=== PATIENT | male | born 1990 ===

== ENCOUNTER 2023-11-15 20:55 | Inpatient (IN) | payer MEDICARE, MEDICAID, SELFPAY ==
[2023-11-15 21:45] VITALS: BMI 23.0
[2023-11-15 22:00] VITALS: BP 138/80; PULSE 83; RESP 18; TEMP 36.4; O2SAT 100
[2023-11-15 22:20] LABS: Valproate 40.6 mcg/mL (50.0-100.0)
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
--- NOTE | 2023-11-16 06:41 | HE.PHANOTE ---
RE: clozapine Nurse Mick Sweeney came to pharmacy with medication administration report for patient; last dose on clozapine was 150mg on 11/24/23 for PM dose. [facility] not allowing dispensing, will attempt to get MEDICAL LAB TECH INSTRUCTOR when patient gets blood draw. Order for ANC is in for 0500 today, waiting on phlebotomy
[2023-11-16 07:00] VITALS: BMI 23.0
[2023-11-16 07:44] VITALS: BP 149/63; PULSE 84; RESP 16; TEMP 36.4; O2SAT 99
[2023-11-16] MEDS: Atorvastatin Calcium 20 MG TABLET PO (09:01)
[2023-11-16] MEDS: Valsartan 40 MG TABLET PO (09:01)
[2023-11-16] MEDS: Valproic Acid 250 MG CAPSULE 500 MG PO ×2 (09:01→20:24)
[2023-11-16 09:32] VITALS: BMI 23.0
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
[2023-11-16 12:51] LABS: MANUAL DIFF FLAG NO
[2023-11-16 12:54] LABS: Basophils Percent Auto 0.5 % (0-2); Eosinophils Percent Auto 0.6 % (0-4); Hematocrit 43.6 % (42.0-52.0); Hemoglobin 14.9 g/dl (14.0-18.0); Imm Gran Abs Auto 0.02 X10*3/uL (0.00-0.03); Imm Gran Pct Auto 0.3 % (0.0-0.4); Lymphocytes Absolute Auto 1.4 X10*3/uL (1.2-4.9); Lymphocytes Percent Auto 21.7 % (20-40); Mean Corpuscular HGB Conc 34.2 g/dl (31.0-36.0); Mean Corpuscular Hemoglobin 29.6 pg (27.0-33.0); Mean Corpuscular Volume 86.7 fL (80.0-98.0); Mean Platelet Volume 9.4 fL (9.4-12.4); Monocytes Absolute Auto 0.4 X10*3/uL (0.1-1.2); Monocytes Percent Auto 6.3 % (2-11); Neut%MD 71.6 %; Neutrophils Absolute Auto 4.7 x10*3/uL (2.0-8.3); Neutrophils Absolute Auto 4.8 x10*3/uL (2.0-8.3); Neutrophils Percent Auto 70.6 % (45-73); Platelet Count 184 X10*3/uL (160-400); Red Blood Count 5.03 X10*6/uL (4.60-5.80); Red Cell Distribution Width 12.5 % (11.0-16.0); WBCANC 6.7 X10*3/uL; White Blood Count 6.7 X10*3/uL (4.8-10.8)
[2023-11-16 13:09] LABS: Alanine Aminotransferase 14 U/L (0-40); Albumin Level 4.1 g/dL (3.5-5.0); Alkaline Phosphatase 86 U/L (39-117); Anion Gap 12 (12-20); Aspartate Amino Transferase 17 U/L (5-37); Bilirubin Total 0.3 mg/dL (0.0-1.0); Blood Urea Nitrogen 17 mg/dL (9-16); Calcium 10.2 mg/dL (8.4-10.2); Carbon Dioxide 28 mmol/L (22-29); Chloride 101 mmol/L (96-108); Cholesterol 198 mg/dL (<200); Creatinine Clr Calc Pharmacy 101.3; Estimated Glomerular Filt Rate > 60; Glucose Fasting 341 mg/dL (60-99); HDL Cholesterol 52 mg/dL (>40); LDL Cholesterol Calculated 105 mg/dL (<100); Potassium 4.3 mmol/L (3.3-5.1); Sodium 137 mmol/L (135-145); Total Protein 7.1 g/dL (6.5-8.0); Triglycerides 208 mg/dL (<150)
[2023-11-16 14:44] LABS: Estimated Average Glucose 283 mg/dL; Hemoglobin A1c % 11.5 % (<6.0)
[2023-11-16 19:27] VITALS: BP 136/69; PULSE 88; RESP 18; TEMP 36.5; O2SAT 95
[2023-11-16] MEDS: cloZAPine 100 MG, cloZAPine 50 MG 150 MG PO (20:24)
[2023-11-17 08:00] VITALS: BP 179/81; PULSE 83; RESP 18; TEMP 36; O2SAT 100
[2023-11-17] MEDS: Atorvastatin Calcium 20 MG TABLET PO (09:03)
[2023-11-17] MEDS: Valsartan 40 MG TABLET PO (09:03)
[2023-11-17] MEDS: Valproic Acid 250 MG CAPSULE 500 MG PO ×2 (09:03→21:36)
--- NOTE | 2023-11-17 09:25 | HO.PSYCHPN ---
Subjective Subjective Date of Service: 11/17/23 Reason For Visit: Schizoaffective disorder Subjective Notes: Conditional Voluntary Interim History: Reviewed with . Pt presents guarded, poor insight. Pt stated, I'm not diabetic. I feel fine. I don't like getting my sugar taken because it hurts. I feel good and I'm ready to go back . Pt denies SI/HI/VH/AH. Medication Compliance: Intermittent Review of Systems Constitutional: Reports as per HPI Eyes: Reports as per HPI Reports as per HPI Cardiovascular: Reports as per HPI Respiratory: Reports as per HPI Gastrointestinal: Reports as per HPI Genitourinary: Reports as per HPI Musculoskeletal: Reports as per HPI Skin/Breast: Reports as per HPI Reports as per HPI Psychiatric: Reports as per HPI Endocrine: Reports as per HPI Hematologic/Lymphatic: Reports as per HPI Allergic/Immunologic: Reports as per HPI Mental Status Exam Mental Status Exam Narrative: Pt is alert and oriented; behavior is guarded and calm; dressed in casual attire ; mood is described as good ; eye contact appropriate; Speech is normal rate, volume and prosody and not pressured; focused on discharge; denies SI/HI/VH/AH. Patients insight and judgment are poor. Diagnostics Vital Signs (24Hr): Vital Signs - 24 hr 11/16/23 19:27 Temperature 97.7 F Pulse Rate 88 Respiratory Rate 18 Blood Pressure 136/69 Pulse Oximetry 95 Oxygen Delivery Method Room Air BMI result Body Mass Index 23.0 Labs 11/16/23 12:50 11/16/23 12:50 Labs: Laboratory Results - last 48 hr 11/15/23 11/16/23 11/16/23 21:49 12:50 12:50 WBC 6.7 RBC 5.03 Hgb 14.9 Hct 43.6 MCV 86.7 MCH 29.6 MCHC 34.2 RDW 12.5 Plt Count 184 MPV 9.4 Immature Gran % (Auto) 0.3 Neut % (Auto) 70.6 Lymph % (Auto) 21.7 [place] % (Auto) 6.3 Eos % (Auto) 0.6 Baso % (Auto) 0.5 Lymph # (Auto) 1.4 [place] # (Auto) 0.4 Eos # (Auto) 0.0 Baso # (Auto) 0.0 Abs Immat Gran (auto) 0.02 Absolute Neuts (auto) 4.7 4.8 Absolute Nucleated RBC 0.000 Nucleated RBC % (auto) 0.0 Sodium 137 Potassium 4.3 Chloride 101 Carbon Dioxide 28 Anion Gap 12 BUN 17 H Creatinine 0.91 Estim Creat Clear Calc 101.3 Estimated GFR > 60 Fasting Glucose 341 H Estimat Average Glucose 283 Hemoglobin A1c % 11.5 H Calcium 10.2 Total Bilirubin 0.3 AST 17 ALT 14 Alkaline Phosphatase 86 Total Protein 7.1 Albumin 4.1 Triglycerides 208 H Cholesterol 198 LDL Cholesterol, Calc 105 H HDL Cholesterol 52 Valproic Acid 40.6 L Medications Medications Current Medications Acetaminophen (Acetaminophen 325 Mg Tablet) 650 mg PO Q6H PRN PRN Reason: Headache/Pain Mild Scale (1-3) Al Hydroxide/Mg Hydroxide (Magnesium Hydrox/Alum Hydrox 30 Ml Oral.Susp) 30 ml PO Q6H PRN PRN Reason: Heartburn/Nausea Atorvastatin Calcium (Atorvastatin Calcium 20 Mg Tablet) 20 mg PO DAILY COUNTS INCLUDE 234 BEDS AT THE [facility] Last Admin: 11/17/23 09:03 Dose: 20 mg Clozapine 100 mg/ Clozapine 50 (mg) 150 mg PO BEDTIME COUNTS INCLUDE 234 BEDS AT THE [facility] Last Admin: 11/16/23 20:24 Dose: 150 mg Dextrose (Dextrose 50 % 25 Gm/50 Ml Syringe) 25 gm IVPUSH Q15M PRN; Protocol PRN Reason: per Hypoglycemia Standing Ord. Glucose (Glucose Gel 15 Gm Gel..Gram.) 15 gm PO Q15M PRN; Protocol PRN Reason: per Hypoglycemia Standing Ord. Haloperidol Decanoate (Haloperidol Decanoate 50 Mg/Ml Vial) 150 mg IM Q14D COUNTS INCLUDE 234 BEDS AT THE [facility] Haloperidol Lactate (Haloperidol Lactate Oral Conc 10 Mg/5 Ml Oral.Conc) 5 mg PO TID PRN PRN Reason: Psychosis Hydroxyzine HCl (Hydroxyzine Hcl 25 Mg Tablet) 25 mg PO Q6H PRN PRN Reason: Anxiety Insulin Human Lispro (Insulin Lispro 100 Unit/Ml 3 Ml Vial) 0 unit SUBCUT QIDACHS COUNTS INCLUDE 234 BEDS AT THE [facility]; Protocol Last Admin: 11/17/23 09:06 Dose: Not Given Magnesium Hydroxide (Milk Of Magnesia 30 Ml Oral.Susp) 30 ml PO DAILY PRN PRN Reason: Constipation Trazodone HCl (Trazodone Hcl 50 Mg Tablet) 50 mg PO BEDTIME MRX1 PRN PRN Reason: Insomnia Valproic Acid (Valproic Acid 250 Mg Capsule) 500 mg PO BID COUNTS INCLUDE 234 BEDS AT THE [facility] Last Admin: 11/17/23 09:03 Dose: 500 mg Valsartan (Valsartan 40 Mg Tablet) 40 mg PO DAILY [facility]; Protocol Last Admin: 11/17/23 09:03 Dose: 40 mg Allergies Allergies Allergy/AdvReac Type Severity Reaction Status Date / Time No Known Allergies Allergy Verified 11/15/23 21:25 Assessment & Plan Assessment & Plan (1) Schizoaffective disorder without good prognostic features: Status: Acute Code(s): F25.9 - Schizoaffective disorder, unspecified (2) Diabetes mellitus: Status: Acute Code(s): E11.9 - Type 2 diabetes mellitus without complications (3) Impulse control disorder: Status: Acute Code(s): F63.9 - Impulse disorder, unspecified Plan Patient admitted on a conditional voluntary. Patient quite concrete poorly informational history of aggression patient was in skilled nursing settings the past and forensic settings has been out since May has been on a combination clozapine Depakote Haldol Decanoate reportedly had missed dose of clozapine normally was 250 mg need further history monitor safety encourage treatment for diabetes increase clozapine as tolerated restart Haldol Decanoate ck dep mlvel cloz level 11/17: Pt presents guarded, poor insight. Pt stated, I'm not diabetic. I feel fine. I don't like getting my sugar taken because it hurts. I feel good and I'm ready to go back . Pt denies SI/HI/VH/AH. Continue current tx plan. Patient educated on: diagnosis, medication risk/benefits and medical condition Informed Consent: understands and further education needed Reason for continued inpatient stay Substantial Risk for: med/psych decompensation Time Spent With Patient Time: Total time managing care of this patient today _20___ minutes.
[2023-11-17 10:00] VITALS: BP 113/59; PULSE 83
--- NOTE | 2023-11-17 11:14 | PC.NURSE ---
BP before meds 179/81, P 83. Re-check after meds two hours later 113/59, P83. Erich FLOR aware.
--- NOTE | 2023-11-17 12:21 | PC.NURSE ---
Patient still refusing POC. Cesia shirley.
[2023-11-17 16:45] LABS: Glucose, Whole Blood 569 mg/dL (60-115)
[2023-11-17] MEDS: Insulin Lispro 100 UNIT/ML 3 ML VIAL SUBCUT (16:57)
--- NOTE | 2023-11-17 17:00 | PC.NURSE ---
POC 569 before supper, Dr Collier notified, Lispro Ins. 10 units per sliding scale as scheduled administered. No s/s of diabetic reaction noted. Will continue to monitor.
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
--- NOTE | 2023-11-17 19:33 | P.EN_ITS ---
Event Note Date of Service: 11/17/23 Event Note: Patient's POC before supper mario was 569 and he was given 10 units insulin. Patient previously had been refusing both p.o. diabetic medications and POC. He has a PMH of developmental delay and does not appear well informed of his PMH or his current medical condition. Patient adamantly denies that he has diabetes and believes he has already taken too much insulin and does not want any more. Reports being 17 or 18 when 1st told that he needed to take insulin, the patient denies ever being diagnosed with diabetes states he was just on the wrong medications then . Attempted to reason with patient, encouraging him to take insulin and p.o. meds in stating that from our perspective he needs his medications in order to prevent becoming seriously ill. Patient still unwilling at this time to take his medication. Will attempt to get BMP, beta hydroxybut yrate, VBG, and a UA. Time Spent With Patient Time: Total time managing care of this patient today ____ minutes.
[2023-11-17 20:20] VITALS: BP 150/76; PULSE 105; RESP 18; TEMP 36.7; O2SAT 99
[2023-11-17 20:24] LABS: VBG Base Excess 5.5 mmol/L; VBG HCO3 31 mmol/L (22-26); VBG pCO2 48 mmHg; VBG pH 7.41 (7.32-7.43); VBG pO2 39 mmHg
[2023-11-17 20:26] LABS: Venous Blood Gas Refer to POC result
[2023-11-17 20:50] LABS: Anion Gap 14 (12-20); Blood Urea Nitrogen 22 mg/dL (9-16); Calcium 11.3 mg/dL (8.4-10.2); Carbon Dioxide 30 mmol/L (22-29); Chloride 99 mmol/L (96-108); Creatinine Clr Calc Pharmacy 90.4; Estimated Glomerular Filt Rate > 60; Glucose Random 342 mg/dL (60-115); Potassium 4.1 mmol/L (3.3-5.1); Sodium 139 mmol/L (135-145)
[2023-11-17 20:53] LABS: Beta-Hydroxybutyrate 0.13 mmol/L (0.02-0.27)
[2023-11-17] MEDS: Insulin Glargine,Hum.rec.anlog 100 UNIT/ML 10 ML VIAL 12 UNIT SUBCUT (21:36)
[2023-11-17] MEDS: cloZAPine 100 MG, cloZAPine 50 MG 150 MG PO (21:36)
--- NOTE | 2023-11-18 03:13 | PC.NURSE ---
Provider Sharon bautista administering pt's ordered 12 units of lantus 11/17/2023 without POC as pt had bloodwork tonight with a glucose of 342 at 2016.
[2023-11-18 10:35] VITALS: BP 129/74; PULSE 100; RESP 18; TEMP 36.6; O2SAT 100
[2023-11-18] MEDS: Atorvastatin Calcium 20 MG TABLET PO (10:38)
[2023-11-18] MEDS: Valsartan 40 MG TABLET PO (10:39)
--- NOTE | 2023-11-18 11:59 | PC.NURSE ---
Pt refused Depakote and diabetic medications/POC, Daniel Collier MD made aware
[2023-11-18 19:50] VITALS: BP 132/70; PULSE 95; RESP 16; TEMP 36.1; O2SAT 99
--- NOTE | 2023-11-18 19:58 | P.PNPSI_ITS ---
Subjective Subjective Date of Service: 11/18/23 Reason For Visit: Schizoaffective disorder Interim History: calm, superficially cooperative. 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 no other complaints or requests. per staff, refusing FSBS, all DM meds. refused morning VPA today. took HS meds. 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 Mental Status Exam Mental Status Exam Narrative: Pt is alert and oriented; behavior is guarded and calm; dressed in casual attire ; mood is described as good ; eye contact appropriate; Speech is normal rate, volume and prosody and not pressured; focused on discharge; no SI/HI/VH/AH expressed. Patients insight and judgment are poor. Diagnostics Vital Signs (24Hr): Vital Signs - 24 hr 11/17/23 20:20 11/18/23 10:35 Temperature 98.0 F 97.8 F Pulse Rate 105 H 100 Respiratory Rate 18 18 Blood Pressure 150/76 H 129/74 Pulse Oximetry 99 100 Oxygen Delivery Method Room Air Room Air BMI result Body Mass Index 23.0 Labs 11/16/23 12:50 11/17/23 20:16 Labs: Laboratory Results - last 48 hr 11/17/23 11/17/23 11/17/23 16:40 20:16 20:19 VBG pH 7.41 VBG pCO2 48 VBG pO2 39 VBG HCO3 31 H VBG O2 Saturation 61.0 VBG Base Excess 5.5 Sodium 139 Potassium 4.1 Chloride 99 Carbon Dioxide 30 H Anion Gap 14 BUN 22 H Creatinine 1.02 Estim Creat Clear Calc 90.4 Estimated GFR > 60 POC Glucose 569 H* Random Glucose 342 H Calcium 11.3 H D Beta-Hydroxybutyrate 0.13 Medications Medications Current Medications Acetaminophen (Acetaminophen 325 Mg Tablet) 650 mg PO Q6H PRN PRN Reason: Headache/Pain Mild Scale (1-3) Al Hydroxide/Mg Hydroxide (Magnesium Hydrox/Alum Hydrox 30 Ml Oral.Susp) 30 ml PO Q6H PRN PRN Reason: Heartburn/Nausea Atorvastatin Calcium (Atorvastatin Calcium 20 Mg Tablet) 20 mg PO DAILY [facility] Last Admin: 11/18/23 10:38 Dose: 20 mg Clozapine 100 mg/ Clozapine 50 (mg) 150 mg PO BEDTIME [facility] Last Admin: 11/17/23 21:36 Dose: 150 mg Dextrose (Dextrose 50 % 25 Gm/50 Ml Syringe) 25 gm IVPUSH Q15M PRN; Protocol PRN Reason: per Hypoglycemia Standing Ord. Empagliflozin (Empagliflozin 25 Mg Tablet) 25 mg PO DAILY [facility] Last Admin: 11/18/23 10:40 Dose: Not Given Glucose (Glucose Gel 15 Gm Gel..Gram.) 15 gm PO Q15M PRN; Protocol PRN Reason: per Hypoglycemia Standing Ord. Haloperidol Lactate (Haloperidol Lactate Oral Conc 10 Mg/5 Ml Oral.Conc) 5 mg PO TID PRN PRN Reason: Psychosis Hydroxyzine HCl (Hydroxyzine Hcl 25 Mg Tablet) 25 mg PO Q6H PRN PRN Reason: Anxiety Insulin Glargine (Insulin Glargine,Hum.Rec.Anlog 100 Unit/Ml 10 Ml Vial) 12 unit SUBCUT BEDTIME [facility] Last Admin: 11/17/23 21:36 Dose: 12 unit Insulin Human Lispro (Insulin Lispro 100 Unit/Ml 3 Ml Vial) 0 unit SUBCUT QIDACHS [facility]; Protocol Last Admin: 11/18/23 15:38 Dose: Not Given Magnesium Hydroxide (Milk Of Magnesia 30 Ml Oral.Susp) 30 ml PO DAILY PRN PRN Reason: Constipation Metformin HCl (Metformin Hcl 1,000 Mg Tablet) 1,000 mg PO BIDWM [facility] Last Admin: 11/18/23 16:00 Dose: Not Given Sitagliptin Phosphate (Sitagliptin Phosphate 100 Mg Tablet) 100 mg PO DAILY [facility] Last Admin: 11/18/23 10:40 Dose: Not Given Trazodone HCl (Trazodone Hcl 50 Mg Tablet) 50 mg PO BEDTIME MRX1 PRN PRN Reason: Insomnia Valproic Acid (Valproic Acid 250 Mg Capsule) 500 mg PO BID [facility] Last Admin: 11/18/23 10:40 Dose: Not Given Valsartan (Valsartan 40 Mg Tablet) 40 mg PO DAILY [facility]; Protocol Last Admin: 11/18/23 10:39 Dose: 40 mg Allergies Allergies Allergy/AdvReac Type Severity Reaction Status Date / Time risperidone [From Risperdal] Allergy Unknown Unknown Verified 11/17/23 14:25 Assessment & Plan Assessment & Plan (1) Schizoaffective disorder without good prognostic features: Status: Acute Code(s): F25.9 - Schizoaffective disorder, unspecified (2) Diabetes mellitus: Status: Acute Code(s): E11.9 - Type 2 diabetes mellitus without complications (3) Impulse control disorder: Status: Acute Code(s): F63.9 - Impulse disorder, unspecified Plan Patient admitted on a conditional voluntary. Patient quite concrete poorly informational history of aggression patient was in group home settings the past and forensic settings has been out since May has been on a combination clozapine Depakote Haldol Decanoate reportedly had missed dose of clozapine normally was 250 mg need further history monitor safety encourage treatment for diabetes increase clozapine as tolerated restart Haldol Decanoate ck dep mlvel cloz level 11/17: Pt presents guarded, poor insight. Pt stated, I'm not diabetic. I feel fine. I don't like getting my sugar taken because it hurts. I feel good and I'm ready to go back . Pt denies SI/HI/VH/AH. Continue current tx plan. 11/18: increase HS clozapine by 25. stable. Reason for continued inpatient stay Substantial Risk for: harm to others, inability to function and rapid decompensation Time Spent With Patient Time: Total time managing care of this patient today ____ minutes.
[2023-11-18] MEDS: cloZAPine 100 MG, cloZAPine 75 MG 175 MG PO (22:08)
[2023-11-18] MEDS: Valproic Acid 250 MG CAPSULE 500 MG PO (22:08)
--- NOTE | 2023-11-19 01:41 | PC.NURSE ---
Pt refused POC and insulin lantus this evening stating I'm taking too much of that stuff into my body.
[2023-11-19 08:50] VITALS: BP 134/67; PULSE 89; RESP 18; TEMP 36.3; O2SAT 98
--- NOTE | 2023-11-19 19:14 | P.PNPSI_ITS ---
Subjective Subjective Date of Service: 11/19/23 Reason For Visit: Schizoaffective disorder Interim History: calm, cooperative. psychotic reasoning provided for refusal of a.m. meds and DM care. per staff, refused all meds this morning. med-compliant last NOC. refusing POC. refusing insulin. grandiose. Mental Status Exam Mental Status Exam Narrative: Pt is alert and oriented; behavior is guarded and calm; dressed in casual attire ; mood is described as good ; eye contact appropriate; Speech is normal rate, volume and prosody and not pressured; focused on discharge; no SI/HI/VH/AH expressed. Patients insight and judgment are poor. Diagnostics Vital Signs (24Hr): Vital Signs - 24 hr 11/18/23 19:50 11/19/23 08:50 Temperature 96.9 F 97.3 F Pulse Rate 95 89 Respiratory Rate 16 18 Blood Pressure 132/70 134/67 Pulse Oximetry 99 98 Oxygen Delivery Method Room Air Room Air BMI result Body Mass Index 23.0 Labs 11/16/23 12:50 11/17/23 20:16 Labs: Laboratory Results - last 48 hr 11/17/23 11/17/23 20:16 20:19 VBG pH 7.41 VBG pCO2 48 VBG pO2 39 VBG HCO3 31 H VBG O2 Saturation 61.0 VBG Base Excess 5.5 Sodium 139 Potassium 4.1 Chloride 99 Carbon Dioxide 30 H Anion Gap 14 BUN 22 H Creatinine 1.02 Estim Creat Clear Calc 90.4 Estimated GFR > 60 Random Glucose 342 H Calcium 11.3 H D Beta-Hydroxybutyrate 0.13 Medications Medications Current Medications Acetaminophen (Acetaminophen 325 Mg Tablet) 650 mg PO Q6H PRN PRN Reason: Headache/Pain Mild Scale (1-3) Al Hydroxide/Mg Hydroxide (Magnesium Hydrox/Alum Hydrox 30 Ml Oral.Susp) 30 ml PO Q6H PRN PRN Reason: Heartburn/Nausea Atorvastatin Calcium (Atorvastatin Calcium 20 Mg Tablet) 20 mg PO DAILY [facility] Last Admin: 11/19/23 09:18 Dose: Not Given Clozapine (Clozapine 100 Mg Tablet) 200 mg PO BEDTIME [facility] Dextrose (Dextrose 50 % 25 Gm/50 Ml Syringe) 25 gm IVPUSH Q15M PRN; Protocol PRN Reason: per Hypoglycemia Standing Ord. Empagliflozin (Empagliflozin 25 Mg Tablet) 25 mg PO DAILY [facility] Last Admin: 11/19/23 09:18 Dose: Not Given Glucose (Glucose Gel 15 Gm Gel..Gram.) 15 gm PO Q15M PRN; Protocol PRN Reason: per Hypoglycemia Standing Ord. Haloperidol Lactate (Haloperidol Lactate Oral Conc 10 Mg/5 Ml Oral.Conc) 5 mg PO TID PRN PRN Reason: Psychosis Hydroxyzine HCl (Hydroxyzine Hcl 25 Mg Tablet) 25 mg PO Q6H PRN PRN Reason: Anxiety Insulin Glargine (Insulin Glargine,Hum.Rec.Anlog 100 Unit/Ml 10 Ml Vial) 12 unit SUBCUT BEDTIME [facility] Last Admin: 11/18/23 22:13 Dose: Not Given Insulin Human Lispro (Insulin Lispro 100 Unit/Ml 3 Ml Vial) 0 unit SUBCUT QIDACHS [facility]; Protocol Last Admin: 11/19/23 16:32 Dose: Not Given Magnesium Hydroxide (Milk Of Magnesia 30 Ml Oral.Susp) 30 ml PO DAILY PRN PRN Reason: Constipation Metformin HCl (Metformin Hcl 1,000 Mg Tablet) 1,000 mg PO BIDWM [facility] Last Admin: 11/19/23 16:32 Dose: Not Given Sitagliptin Phosphate (Sitagliptin Phosphate 100 Mg Tablet) 100 mg PO DAILY [facility] Last Admin: 11/19/23 09:18 Dose: Not Given Trazodone HCl (Trazodone Hcl 50 Mg Tablet) 50 mg PO BEDTIME MRX1 PRN PRN Reason: Insomnia Valproic Acid (Valproic Acid 250 Mg Capsule) 1,000 mg PO BEDTIME [facility] Valsartan (Valsartan 40 Mg Tablet) 40 mg PO DAILY [facility]; Protocol Last Admin: 11/19/23 09:18 Dose: Not Given Allergies Allergies Allergy/AdvReac Type Severity Reaction Status Date / Time risperidone [From Risperdal] Allergy Unknown Unknown Verified 11/17/23 14:25 Assessment & Plan Assessment & Plan (1) Schizoaffective disorder without good prognostic features: Status: Acute Code(s): F25.9 - Schizoaffective disorder, unspecified (2) Diabetes mellitus: Status: Acute Code(s): E11.9 - Type 2 diabetes mellitus without complications (3) Impulse control disorder: Status: Acute Code(s): F63.9 - Impulse disorder, unspecified Plan Patient admitted on a conditional voluntary. Patient quite concrete poorly informational history of aggression patient was in penitentiary settings the past and forensic settings has been out since May has been on a combination clozapine Depakote Haldol Decanoate reportedly had missed dose of clozapine normally was 250 mg need further history monitor safety encourage treatment for diabetes increase clozapine as tolerated restart Haldol Decanoate ck dep mlvel cloz level 11/17: Pt presents guarded, poor insight. Pt stated, I'm not diabetic. I feel fine. I don't like getting my sugar taken because it hurts. I feel good and I'm ready to go back . Pt denies SI/HI/VH/AH. Continue current tx plan. 11/18: increase HS clozapine by 25, to 175 mg QHS. stable. 11/19: increase HS clozapine by 25, to 200 mg QHS. consolidate all VPA at HS, since he has been refusing the morning dose. stable presentation. psychotic. Reason for continued inpatient stay Substantial Risk for: harm to others, inability to function and rapid decompensation Time Spent With Patient Time: Total time managing care of this patient today ____ minutes.
[2023-11-19 19:35] VITALS: BP 147/76; PULSE 98; RESP 18; TEMP 36.2; O2SAT 98
[2023-11-19] MEDS: cloZAPine 100 MG TABLET 200 MG PO (21:08)
--- NOTE | 2023-11-20 02:28 | PC.NURSE ---
Pt refused VPA, POC and Insulin, taking only clozaril.
[2023-11-20 09:32] VITALS: BP 112/69; PULSE 112; RESP 16; TEMP 36.4; O2SAT 100
--- NOTE | 2023-11-20 14:26 | HO.PSYCHPN ---
Subjective Subjective Date of Service: 11/20/23 Reason For Visit: Schizoaffective disorder Interim History: calm, cooperative. walking the halls rapping. 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 cautions against over-indulgence in drugs, asserting just some alcohol ad cannabis is good. states he doesn't want to take VPA, was encouraged to do so in any case. review plan to get him back to 250 mg QHS of clozaril prior to discharge. per staff, flat, withdrawn, guarded. refusing POC. eating well. refused VPA last night. Mental Status Exam Mental Status Exam Narrative: Pt is alert and oriented; behavior is guarded and calm; dressed in casual attire ; mood is described as good ; eye contact appropriate; Speech is normal rate, volume and prosody and not pressured; focused on discharge; no SI/HI/VH/AH expressed. Patients insight and judgment are poor. Diagnostics Vital Signs (24Hr): Vital Signs - 24 hr 11/19/23 19:35 11/20/23 09:32 Temperature 97.2 F 97.5 F Pulse Rate 98 112 H Respiratory Rate 18 16 Blood Pressure 147/76 H 112/69 Pulse Oximetry 98 100 Oxygen Delivery Method Room Air Room Air BMI result Body Mass Index 23.0 Labs 11/16/23 12:50 11/17/23 20:16 Medications Medications Current Medications Acetaminophen (Acetaminophen 325 Mg Tablet) 650 mg PO Q6H PRN PRN Reason: Headache/Pain Mild Scale (1-3) Al Hydroxide/Mg Hydroxide (Magnesium Hydrox/Alum Hydrox 30 Ml Oral.Susp) 30 ml PO Q6H PRN PRN Reason: Heartburn/Nausea Atorvastatin Calcium (Atorvastatin Calcium 20 Mg Tablet) 20 mg PO DAILY [facility] Last Admin: 11/20/23 09:57 Dose: Not Given Clozapine (Clozapine 25 Mg Tablet) 225 mg PO BEDTIME [facility] Dextrose (Dextrose 50 % 25 Gm/50 Ml Syringe) 25 gm IVPUSH Q15M PRN; Protocol PRN Reason: per Hypoglycemia Standing Ord. Empagliflozin (Empagliflozin 25 Mg Tablet) 25 mg PO DAILY [facility] Last Admin: 11/20/23 09:57 Dose: Not Given Glucose (Glucose Gel 15 Gm Gel..Gram.) 15 gm PO Q15M PRN; Protocol PRN Reason: per Hypoglycemia Standing Ord. Haloperidol Lactate (Haloperidol Lactate Oral Conc 10 Mg/5 Ml Oral.Conc) 5 mg PO TID PRN PRN Reason: Psychosis Hydroxyzine HCl (Hydroxyzine Hcl 25 Mg Tablet) 25 mg PO Q6H PRN PRN Reason: Anxiety Insulin Glargine (Insulin Glargine,Hum.Rec.Anlog 100 Unit/Ml 10 Ml Vial) 12 unit SUBCUT BEDTIME [facility] Last Admin: 11/19/23 21:08 Dose: Not Given Insulin Human Lispro (Insulin Lispro 100 Unit/Ml 3 Ml Vial) 0 unit SUBCUT QIDACHS [facility]; Protocol Last Admin: 11/20/23 11:35 Dose: Not Given Magnesium Hydroxide (Milk Of Magnesia 30 Ml Oral.Susp) 30 ml PO DAILY PRN PRN Reason: Constipation Metformin HCl (Metformin Hcl 1,000 Mg Tablet) 1,000 mg PO BIDWM [facility] Last Admin: 11/20/23 09:57 Dose: Not Given Sitagliptin Phosphate (Sitagliptin Phosphate 100 Mg Tablet) 100 mg PO DAILY [facility] Last Admin: 11/20/23 09:57 Dose: Not Given Trazodone HCl (Trazodone Hcl 50 Mg Tablet) 50 mg PO BEDTIME MRX1 PRN PRN Reason: Insomnia Valproic Acid (Valproic Acid 250 Mg Capsule) 1,000 mg PO BEDTIME [facility] Last Admin: 11/19/23 21:08 Dose: Not Given Valsartan (Valsartan 40 Mg Tablet) 40 mg PO DAILY [facility]; Protocol Last Admin: 11/20/23 09:57 Dose: Not Given Allergies Allergies Allergy/AdvReac Type Severity Reaction Status Date / Time risperidone [From Risperdal] Allergy Unknown Unknown Verified 11/17/23 14:25 Assessment & Plan Assessment & Plan (1) Schizoaffective disorder without good prognostic features: Status: Acute Code(s): F25.9 - Schizoaffective disorder, unspecified (2) Diabetes mellitus: Status: Acute Code(s): E11.9 - Type 2 diabetes mellitus without complications (3) Impulse control disorder: Status: Acute Code(s): F63.9 - Impulse disorder, unspecified Plan Patient admitted on a conditional voluntary. Patient quite concrete poorly informational history of aggression patient was in [place] [facility] settings the past and forensic settings has been out since May has been on a combination clozapine Depakote Haldol Decanoate reportedly had missed dose of clozapine normally was 250 mg need further history monitor safety encourage treatment for diabetes increase clozapine as tolerated restart Haldol Decanoate ck dep mlvel cloz level 11/17: Pt presents guarded, poor insight. Pt stated, I'm not diabetic. I feel fine. I don't like getting my sugar taken because it hurts. I feel good and I'm ready to go back . Pt denies SI/HI/VH/AH. Continue current tx plan. 11/18: increase HS clozapine by 25, to 175 mg QHS. stable. 11/19: increase HS clozapine by 25, to 200 mg QHS. consolidate all VPA at HS, since he has been refusing the morning dose. stable presentation. psychotic. 11/20: increase clozapine to 225 mg tonight. walking the [place] rapping, grandiose delusions. refusing VPA. Reason for continued inpatient stay Substantial Risk for: inability to function and rapid decompensation Time Spent With Patient Time: Total time managing care of this patient today ____ minutes.
[2023-11-20] MEDS: Acetaminophen 325 MG TABLET 650 MG PO ×2 (14:44→23:40)
--- NOTE | 2023-11-20 17:24 | PC.NURSE ---
PT refused all POC's and medications. Daniel Collier MD made aware.
[2023-11-20] MEDS: Nicotine Polacrilex 2 MG GUM BUCCAL (17:42)
[2023-11-20 19:45] VITALS: BP 149/89; PULSE 118; RESP 16; TEMP 36.1; O2SAT 100
[2023-11-20] MEDS: cloZAPine 200 MG, cloZAPine 25 MG 225 MG PO (21:44)
--- NOTE | 2023-11-21 00:03 | PC.NURSE ---
Pt has been exhibiting far more responding to internal stimuli than seen over the last few days. Overtly responding, angry and loudly so.
[2023-11-21 07:25] VITALS: BP 138/89; PULSE 120; RESP 16; TEMP 36.1; O2SAT 98
--- NOTE | 2023-11-21 09:32 | HO.PSYCHPN ---
Subjective Subjective Date of Service: 11/21/23 Reason For Visit: Schizoaffective disorder Subjective Notes: Conditional Voluntary Interim History: Reviewed with . Pt presents calm during 1:1; pt stated, I feel like my mood is good overall . Pt continues to refuse POC and insulin. He reports he will start taking the valporic acid tonight. denies SI/HI/VH/AH. Medication Compliance: Intermittent Side effects from medications: No Review of Systems Constitutional: Reports as per HPI Eyes: Reports as per HPI Reports as per HPI Cardiovascular: Reports as per HPI Respiratory: Reports as per HPI Gastrointestinal: Reports as per HPI Genitourinary: Reports as per HPI Musculoskeletal: Reports as per HPI Skin/Breast: Reports as per HPI Reports as per HPI Psychiatric: Reports as per HPI Endocrine: Reports as per HPI Hematologic/Lymphatic: Reports as per HPI Allergic/Immunologic: Reports as per HPI Mental Status Exam Mental Status Exam Narrative: Pt is alert and oriented; behavior is guarded and calm; dressed in casual attire ; mood is described as good ; eye contact appropriate; Speech is normal rate, volume and prosody and not pressured; focused on discharge; no SI/HI/VH/AH expressed. Patients insight and judgment are poor. Diagnostics Vital Signs (24Hr): Vital Signs - 24 hr 11/20/23 19:45 11/21/23 07:25 Temperature 96.9 F 97.0 F Pulse Rate 118 H 120 H Respiratory Rate 16 16 Blood Pressure 149/89 H 138/89 Pulse Oximetry 100 98 Oxygen Delivery Method Room Air Room Air BMI result Body Mass Index 23.0 Labs 11/16/23 12:50 11/17/23 20:16 Medications Medications Current Medications Acetaminophen (Acetaminophen 325 Mg Tablet) 650 mg PO Q6H PRN PRN Reason: Headache/Pain Mild Scale (1-3) Last Admin: 11/20/23 23:40 Dose: 650 mg Al Hydroxide/Mg Hydroxide (Magnesium Hydrox/Alum Hydrox 30 Ml Oral.Susp) 30 ml PO Q6H PRN PRN Reason: Heartburn/Nausea Atorvastatin Calcium (Atorvastatin Calcium 20 Mg Tablet) 20 mg PO DAILY [facility] Last Admin: 11/21/23 07:49 Dose: Not Given Clozapine 200 mg/ Clozapine 25 (mg) 225 mg PO BEDTIME [facility] Last Admin: 11/20/23 21:44 Dose: 225 mg Dextrose (Dextrose 50 % 25 Gm/50 Ml Syringe) 25 gm IVPUSH Q15M PRN; Protocol PRN Reason: per Hypoglycemia Standing Ord. Empagliflozin (Empagliflozin 25 Mg Tablet) 25 mg PO DAILY [facility] Last Admin: 11/21/23 07:49 Dose: Not Given Glucose (Glucose Gel 15 Gm Gel..Gram.) 15 gm PO Q15M PRN; Protocol PRN Reason: per Hypoglycemia Standing Ord. Haloperidol Lactate (Haloperidol Lactate Oral Conc 10 Mg/5 Ml Oral.Conc) 5 mg PO TID PRN PRN Reason: Psychosis Hydroxyzine HCl (Hydroxyzine Hcl 25 Mg Tablet) 25 mg PO Q6H PRN PRN Reason: Anxiety Insulin Glargine (Insulin Glargine,Hum.Rec.Anlog 100 Unit/Ml 10 Ml Vial) 12 unit SUBCUT BEDTIME [facility] Last Admin: 11/20/23 21:47 Dose: Not Given Insulin Human Lispro (Insulin Lispro 100 Unit/Ml 3 Ml Vial) 0 unit SUBCUT QIDACHS [facility]; Protocol Last Admin: 11/21/23 07:49 Dose: Not Given Magnesium Hydroxide (Milk Of Magnesia 30 Ml Oral.Susp) 30 ml PO DAILY PRN PRN Reason: Constipation Metformin HCl (Metformin Hcl 1,000 Mg Tablet) 1,000 mg PO BIDWM [facility] Last Admin: 11/21/23 07:49 Dose: Not Given Nicotine Polacrilex (Nicotine Polacrilex 2 Mg Gum) 2 mg BUCCAL Q2H PRN PRN Reason: Nicotine Cravings Last Admin: 11/20/23 17:42 Dose: 2 mg Sitagliptin Phosphate (Sitagliptin Phosphate 100 Mg Tablet) 100 mg PO DAILY [facility] Last Admin: 11/21/23 07:49 Dose: Not Given Trazodone HCl (Trazodone Hcl 50 Mg Tablet) 50 mg PO BEDTIME MRX1 PRN PRN Reason: Insomnia Valproic Acid (Valproic Acid 250 Mg Capsule) 1,000 mg PO BEDTIME [facility] Last Admin: 11/20/23 21:47 Dose: Not Given Valsartan (Valsartan 40 Mg Tablet) 40 mg PO DAILY [facility]; Protocol Last Admin: 11/21/23 07:49 Dose: Not Given Allergies Allergies Allergy/AdvReac Type Severity Reaction Status Date / Time risperidone [From Risperdal] Allergy Unknown Unknown Verified 11/17/23 14:25 Assessment & Plan Assessment & Plan (1) Schizoaffective disorder without good prognostic features: Status: Acute Code(s): F25.9 - Schizoaffective disorder, unspecified (2) Diabetes mellitus: Status: Acute Code(s): E11.9 - Type 2 diabetes mellitus without complications (3) Impulse control disorder: Status: Acute Code(s): F63.9 - Impulse disorder, unspecified Plan Patient admitted on a conditional voluntary. Patient quite concrete poorly informational history of aggression patient was in intermediate settings the past and forensic settings has been out since May has been on a combination clozapine Depakote Haldol Decanoate reportedly had missed dose of clozapine normally was 250 mg need further history monitor safety encourage treatment for diabetes increase clozapine as tolerated restart Haldol Decanoate ck dep mlvel cloz level 11/17: Pt presents guarded, poor insight. Pt stated, I'm not diabetic. I feel fine. I don't like getting my sugar taken because it hurts. I feel good and I'm ready to go back . Pt denies SI/HI/VH/AH. Continue current tx plan. 11/18: increase HS clozapine by 25, to 175 mg QHS. stable. 11/19: increase HS clozapine by 25, to 200 mg QHS. consolidate all VPA at HS, since he has been refusing the morning dose. stable presentation. psychotic. 11/20: increase clozapine to 225 mg tonight. walking the [place] rapping, grandiose delusions. refusing VPA. 11/21: Pt presents calm during 1:1; pt stated, I feel like my mood is good overall . Pt continues to refuse POC and insulin. He reports he will start taking the valporic acid tonight. Observed walking the unit elizalde and rapping. denies SI/HI/VH/AH. Increase Clozapine to 250mg PO bedtime. Labs ordered for tomorrow morning. ANC and CBC. Patient educated on: diagnosis, medication risk/benefits and therapeutic strategies Informed Consent: understands and further education needed Reason for continued inpatient stay Substantial Risk for: med/psych decompensation Time Spent With Patient Time: Total time managing care of this patient today _20___ minutes.
[2023-11-21 20:30] VITALS: BP 145/82; PULSE 110; RESP 16; TEMP 36.7; O2SAT 98
[2023-11-21] MEDS: cloZAPine 25 MG TABLET 50 MG PO (20:47)
[2023-11-21] MEDS: cloZAPine 100 MG TABLET 200 MG PO (20:47)
[2023-11-21] MEDS: Valproic Acid 250 MG CAPSULE 1000 MG PO (20:48)
[2023-11-21 21:30] LABS: COVID-19 Test Negative (Negative); IDNOW Serial# 08D9AD1C
[2023-11-22 08:11] VITALS: BP 121/65; PULSE 80; RESP 14; TEMP 36.6; O2SAT 96
[2023-11-22 08:27] LABS: Glucose, Whole Blood > 600 mg/dL (60-115)
--- NOTE | 2023-11-22 09:44 | P.PNPSI_ITS ---
Subjective Subjective Date of Service: 11/22/23 Reason For Visit: Schizoaffective disorder Subjective Notes: Conditional Voluntary Interim History: Reviewed with . Pt guarded during 1:1; reports feeling good today. Pt stated, I'm just waiting to leave . Pt denies SI/HI/VH/AH. Refused insulin, despite education and encouragement. Medication Compliance: Intermittent Attending Groups: No Review of Systems Constitutional: Reports as per HPI Eyes: Reports as per HPI Reports as per HPI Cardiovascular: Reports as per HPI Respiratory: Reports as per HPI Gastrointestinal: Reports as per HPI Genitourinary: Reports as per HPI Musculoskeletal: Reports as per HPI Skin/Breast: Reports as per HPI Reports as per HPI Psychiatric: Reports as per HPI Endocrine: Reports as per HPI Hematologic/Lymphatic: Reports as per HPI Allergic/Immunologic: Reports as per HPI Mental Status Exam Mental Status Exam Narrative: Pt is alert and oriented; behavior is guarded and calm; dressed in casual attire ; mood is described as good ; eye contact appropriate; Speech is normal rate, volume and prosody and not pressured; focused on discharge; no SI/HI/VH/AH expressed. Patients insight and judgment are poor. Diagnostics Vital Signs (24Hr): Vital Signs - 24 hr 11/21/23 20:30 11/22/23 08:11 Temperature 98.0 F 97.9 F Pulse Rate 110 H 80 Respiratory Rate 16 14 Blood Pressure 145/82 H 121/65 Pulse Oximetry 98 96 Oxygen Delivery Method Room Air Room Air BMI result Body Mass Index 23.0 Labs 11/16/23 12:50 11/17/23 20:16 Labs: Laboratory Results - last 48 hr 11/21/23 11/22/23 21:06 08:21 POC Glucose > 600 H* COVID-19 (ALEJANDRO) Negative COVID-19 Clin Com See Note Medications Medications Current Medications Acetaminophen (Acetaminophen 325 Mg Tablet) 650 mg PO Q6H PRN PRN Reason: Headache/Pain Mild Scale (1-3) Last Admin: 11/20/23 23:40 Dose: 650 mg Al Hydroxide/Mg Hydroxide (Magnesium Hydrox/Alum Hydrox 30 Ml Oral.Susp) 30 ml PO Q6H PRN PRN Reason: Heartburn/Nausea Atorvastatin Calcium (Atorvastatin Calcium 20 Mg Tablet) 20 mg PO DAILY [facility] Last Admin: 11/22/23 09:39 Dose: Not Given Clozapine (Clozapine 100 Mg Tablet) 200 mg PO BEDTIME DARREN Last Admin: 11/21/23 20:47 Dose: 200 mg Clozapine (Clozapine 25 Mg Tablet) 50 mg PO BEDTIME [facility] Last Admin: 11/21/23 20:47 Dose: 50 mg Dextrose (Dextrose 50 % 25 Gm/50 Ml Syringe) 25 gm IVPUSH Q15M PRN; Protocol PRN Reason: per Hypoglycemia Standing Ord. Empagliflozin (Empagliflozin 25 Mg Tablet) 25 mg PO DAILY [facility] Last Admin: 11/22/23 09:39 Dose: Not Given Glucose (Glucose Gel 15 Gm Gel..Gram.) 15 gm PO Q15M PRN; Protocol PRN Reason: per Hypoglycemia Standing Ord. Haloperidol Lactate (Haloperidol Lactate Oral Conc 10 Mg/5 Ml Oral.Conc) 5 mg PO TID PRN PRN Reason: Psychosis Hydroxyzine HCl (Hydroxyzine Hcl 25 Mg Tablet) 25 mg PO Q6H PRN PRN Reason: Anxiety Insulin Glargine (Insulin Glargine,Hum.Rec.Anlog 100 Unit/Ml 10 Ml Vial) 12 unit SUBCUT BEDTIME [facility] Last Admin: 11/21/23 22:21 Dose: Not Given Insulin Human Lispro (Insulin Lispro 100 Unit/Ml 3 Ml Vial) 0 unit SUBCUT QIDACHS [facility]; Protocol Last Admin: 11/22/23 09:39 Dose: Not Given Magnesium Hydroxide (Milk Of Magnesia 30 Ml Oral.Susp) 30 ml PO DAILY PRN PRN Reason: Constipation Metformin HCl (Metformin Hcl 1,000 Mg Tablet) 1,000 mg PO BIDWM [facility] Last Admin: 11/22/23 09:39 Dose: Not Given Nicotine Polacrilex (Nicotine Polacrilex 2 Mg Gum) 2 mg BUCCAL Q2H PRN PRN Reason: Nicotine Cravings Last Admin: 11/20/23 17:42 Dose: 2 mg Sitagliptin Phosphate (Sitagliptin Phosphate 100 Mg Tablet) 100 mg PO DAILY [facility] Last Admin: 11/22/23 09:39 Dose: Not Given Trazodone HCl (Trazodone Hcl 50 Mg Tablet) 50 mg PO BEDTIME MRX1 PRN PRN Reason: Insomnia Valproic Acid (Valproic Acid 250 Mg Capsule) 1,000 mg PO BEDTIME [facility] Last Admin: 11/21/23 20:48 Dose: 1,000 mg Valsartan (Valsartan 40 Mg Tablet) 40 mg PO DAILY [facility]; Protocol Last Admin: 11/22/23 09:40 Dose: Not Given Allergies Allergies Allergy/AdvReac Type Severity Reaction Status Date / Time risperidone [From Risperdal] Allergy Unknown Unknown Verified 11/17/23 14:25 Assessment & Plan Assessment & Plan (1) Schizoaffective disorder without good prognostic features: Status: Acute Code(s): F25.9 - Schizoaffective disorder, unspecified (2) Diabetes mellitus: Status: Acute Code(s): E11.9 - Type 2 diabetes mellitus without complications (3) Impulse control disorder: Status: Acute Code(s): F63.9 - Impulse disorder, unspecified Plan Patient admitted on a conditional voluntary. Patient quite concrete poorly informational history of aggression patient was in assisted settings the past and forensic settings has been out since May has been on a combination clozapine Depakote Haldol Decanoate reportedly had missed dose of clozapine normally was 250 mg need further history monitor safety encourage treatment for diabetes increase clozapine as tolerated restart Haldol Decanoate ck dep mlvel cloz level 11/17: Pt presents guarded, poor insight. Pt stated, I'm not diabetic. I feel fine. I don't like getting my sugar taken because it hurts. I feel good and I'm ready to go back . Pt denies SI/HI/VH/AH. Continue current tx plan. 11/18: increase HS clozapine by 25, to 175 mg QHS. stable. 11/19: increase HS clozapine by 25, to 200 mg QHS. consolidate all VPA at HS, since he has been refusing the morning dose. stable presentation. psychotic. 11/20: increase clozapine to 225 mg tonight. walking the elizalde rapping, grandiose delusions. refusing VPA. 11/21: Pt presents calm during 1:1; pt stated, I feel like my mood is good overall . Pt continues to refuse POC and insulin. He reports he will start taking the valporic acid tonight. Observed walking the unit elizalde and rapping. denies SI/HI/VH/AH. Increase Clozapine to 250mg PO bedtime. Labs ordered for tomorrow morning. ANC and CBC. 11/22: Pt guarded during 1:1; reports feeling good today. Pt stated, I'm just waiting to leave . Pt denies SI/HI/VH/AH. Refused insulin, despite education and encouragement. waiting on lab results. Patient educated on: diagnosis, medication risk/benefits and medical condition Informed Consent: understands and further education needed Reason for continued inpatient stay Substantial Risk for: med/psych decompensation Time Spent With Patient Time: Total time managing care of this patient today _20___ minutes.
[2023-11-22 15:14] LABS: Basophils Percent Auto 0.4 % (0-2); Eosinophils Absolute Auto 0.1 X10*3/uL (0.0-0.4); Eosinophils Percent Auto 0.9 % (0-4); Hematocrit 43.5 % (42.0-52.0); Hemoglobin 14.8 g/dl (14.0-18.0); Imm Gran Abs Auto 0.01 X10*3/uL (0.00-0.03); Imm Gran Pct Auto 0.2 % (0.0-0.4); Lymphocytes Absolute Auto 1.3 X10*3/uL (1.2-4.9); MANUAL DIFF FLAG NO; Mean Corpuscular Hemoglobin 28.7 pg (27.0-33.0); Mean Corpuscular Volume 84.3 fL (80.0-98.0); Mean Platelet Volume 9.6 fL (9.4-12.4); Monocytes Absolute Auto 0.4 X10*3/uL (0.1-1.2); Monocytes Percent Auto 8.3 % (2-11); Neut%MD 65.2 %; Neutrophils Absolute Auto 3.5 x10*3/uL (2.0-8.3); Neutrophils Percent Auto 65.2 % (45-73); Platelet Count 176 X10*3/uL (160-400); Red Blood Count 5.16 X10*6/uL (4.60-5.80); Red Cell Distribution Width 12.1 % (11.0-16.0); WBCANC 5.3 X10*3/uL; White Blood Count 5.3 X10*3/uL (4.8-10.8)
[2023-11-22 15:33] LABS: Valproate < 12.5 mcg/mL (50.0-100.0)
[2023-11-22 15:35] LABS: Alanine Aminotransferase 22 U/L (0-40); Albumin Level 4.3 g/dL (3.5-5.0); Alkaline Phosphatase 115 U/L (39-117); Aspartate Amino Transferase 11 U/L (5-37); Bilirubin Direct 0.2 mg/dL (0.0-0.5); Bilirubin Total 0.4 mg/dL (0.0-1.0); Total Protein 7.6 g/dL (6.5-8.0)
--- NOTE | 2023-11-22 16:35 | PC.NURSE ---
Late entry: Pt's POC was over 600 this morning, refused repeat test. Cesia Majano NP notified, instructed to give 10 units of sliding scale insulin. Pt refused insulin and standing PO medications. Provider notified. Will continue to monitor
[2023-11-22 16:38] LABS: Ammonia 42 umol/L (13-55)
[2023-11-22 18:00] VITALS: BP 139/82; PULSE 119; TEMP 36.2; O2SAT 96
[2023-11-22] MEDS: cloZAPine 100 MG TABLET 200 MG PO (21:49)
[2023-11-22] MEDS: Valproic Acid 250 MG CAPSULE 1000 MG PO (21:49)
[2023-11-22] MEDS: cloZAPine 25 MG TABLET 50 MG PO (21:50)
[2023-11-23 07:00] VITALS: BMI 22.9
[2023-11-23 08:09] VITALS: BP 144/65; PULSE 99; RESP 16; TEMP 36.1; O2SAT 100
--- NOTE | 2023-11-23 09:20 | P.PNPSI_ITS ---
Subjective Subjective Date of Service: 11/23/23 Reason For Visit: Schizoaffective disorder Subjective Notes: Conditional Voluntary Interim History: Reviewed with . Pt guarded during 1:1; reports feeling good today. Pt stated, I'm just waiting to leave. I hope they take me back tomorrow . Pt denies SI/HI/VH/AH. Medication Compliance: Yes Side effects from medications: No Attending Groups: No Review of Systems Constitutional: Reports as per HPI Eyes: Reports as per HPI Reports as per HPI Cardiovascular: Reports as per HPI Respiratory: Reports as per HPI Gastrointestinal: Reports as per HPI Genitourinary: Reports as per HPI Musculoskeletal: Reports as per HPI Skin/Breast: Reports as per HPI Reports as per HPI Psychiatric: Reports as per HPI Endocrine: Reports as per HPI Hematologic/Lymphatic: Reports as per HPI Allergic/Immunologic: Reports as per HPI Mental Status Exam Mental Status Exam Narrative: Pt is alert and oriented; behavior is guarded and calm; dressed in casual attire ; mood is described as good ; eye contact appropriate; Speech is normal rate, volume and prosody and not pressured; focused on discharge; denies SI/HI/VH/AH. Diagnostics Vital Signs (24Hr): Vital Signs - 24 hr 11/22/23 18:00 11/23/23 08:09 Temperature 97.1 F 97.0 F Pulse Rate 119 H 99 Respiratory Rate 16 Blood Pressure 139/82 144/65 H Pulse Oximetry 96 100 Oxygen Delivery Method Room Air Room Air BMI result Body Mass Index 23.0 Labs 11/22/23 14:56 11/17/23 20:16 Labs: Laboratory Results - last 48 hr 11/21/23 11/22/23 11/22/23 21:06 08:21 14:55 WBC RBC Hgb Hct MCV MCH MCHC RDW Plt Count MPV Immature Gran % (Auto) Neut % (Auto) Lymph % (Auto) Robeson % (Auto) Eos % (Auto) Baso % (Auto) Lymph # (Auto) Robeson # (Auto) Eos # (Auto) Baso # (Auto) Abs Immat Gran (auto) Absolute Neuts (auto) Absolute Nucleated RBC Nucleated RBC % (auto) POC Glucose > 600 H* Total Bilirubin Direct Bilirubin AST ALT Alkaline Phosphatase Ammonia 42 Total Protein Albumin Valproic Acid COVID-19 (ALEJANDRO) Negative COVID-19 Clin Com See Note 11/22/23 14:56 WBC 5.3 RBC 5.16 Hgb 14.8 Hct 43.5 MCV 84.3 MCH 28.7 MCHC 34.0 RDW 12.1 Plt Count 176 MPV 9.6 Immature Gran % (Auto) 0.2 Neut % (Auto) 65.2 Lymph % (Auto) 25.0 Robeson % (Auto) 8.3 Eos % (Auto) 0.9 Baso % (Auto) 0.4 Lymph # (Auto) 1.3 Robeson # (Auto) 0.4 Eos # (Auto) 0.1 Baso # (Auto) 0.0 Abs Immat Gran (auto) 0.01 Absolute Neuts (auto) 3.5 Absolute Nucleated RBC 0.000 Nucleated RBC % (auto) 0.0 POC Glucose Total Bilirubin 0.4 Direct Bilirubin 0.2 AST 11 ALT 22 Alkaline Phosphatase 115 Ammonia Total Protein 7.6 Albumin 4.3 Valproic Acid < 12.5 L COVID-19 (ALEJANDRO) COVID-19 Clin Com Medications Medications Current Medications Acetaminophen (Acetaminophen 325 Mg Tablet) 650 mg PO Q6H PRN PRN Reason: Headache/Pain Mild Scale (1-3) Last Admin: 11/20/23 23:40 Dose: 650 mg Al Hydroxide/Mg Hydroxide (Magnesium Hydrox/Alum Hydrox 30 Ml Oral.Susp) 30 ml PO Q6H PRN PRN Reason: Heartburn/Nausea Atorvastatin Calcium (Atorvastatin Calcium 20 Mg Tablet) 20 mg PO DAILY [facility] Last Admin: 11/23/23 08:55 Dose: Not Given Clozapine (Clozapine 100 Mg Tablet) 200 mg PO BEDTIME DARREN Last Admin: 11/22/23 21:49 Dose: 200 mg Clozapine (Clozapine 25 Mg Tablet) 50 mg PO BEDTIME DARREN Last Admin: 11/22/23 21:50 Dose: 50 mg Dextrose (Dextrose 50 % 25 Gm/50 Ml Syringe) 25 gm IVPUSH Q15M PRN; Protocol PRN Reason: per Hypoglycemia Standing Ord. Empagliflozin (Empagliflozin 25 Mg Tablet) 25 mg PO DAILY [facility] Last Admin: 11/23/23 08:55 Dose: Not Given Glucose (Glucose Gel 15 Gm Gel..Gram.) 15 gm PO Q15M PRN; Protocol PRN Reason: per Hypoglycemia Standing Ord. Haloperidol Lactate (Haloperidol Lactate Oral Conc 10 Mg/5 Ml Oral.Conc) 5 mg PO TID PRN PRN Reason: Psychosis Hydroxyzine HCl (Hydroxyzine Hcl 25 Mg Tablet) 25 mg PO Q6H PRN PRN Reason: Anxiety Insulin Glargine (Insulin Glargine,Hum.Rec.Anlog 100 Unit/Ml 10 Ml Vial) 12 unit SUBCUT BEDTIME [facility] Last Admin: 11/22/23 21:51 Dose: Not Given Insulin Human Lispro (Insulin Lispro 100 Unit/Ml 3 Ml Vial) 0 unit SUBCUT QIDACHS [facility]; Protocol Last Admin: 11/23/23 08:38 Dose: Not Given Magnesium Hydroxide (Milk Of Magnesia 30 Ml Oral.Susp) 30 ml PO DAILY PRN PRN Reason: Constipation Metformin HCl (Metformin Hcl 1,000 Mg Tablet) 1,000 mg PO BIDWM [facility] Last Admin: 11/23/23 08:55 Dose: Not Given Nicotine Polacrilex (Nicotine Polacrilex 2 Mg Gum) 2 mg BUCCAL Q2H PRN PRN Reason: Nicotine Cravings Last Admin: 11/20/23 17:42 Dose: 2 mg Sitagliptin Phosphate (Sitagliptin Phosphate 100 Mg Tablet) 100 mg PO DAILY [facility] Last Admin: 11/23/23 08:55 Dose: Not Given Trazodone HCl (Trazodone Hcl 50 Mg Tablet) 50 mg PO BEDTIME MRX1 PRN PRN Reason: Insomnia Valproic Acid (Valproic Acid 250 Mg Capsule) 1,000 mg PO BEDTIME [facility] Last Admin: 11/22/23 21:49 Dose: 1,000 mg Valsartan (Valsartan 40 Mg Tablet) 40 mg PO DAILY [facility]; Protocol Last Admin: 11/23/23 08:55 Dose: Not Given Allergies Allergies Allergy/AdvReac Type Severity Reaction Status Date / Time risperidone [From Risperdal] Allergy Unknown Unknown Verified 11/17/23 14:25 Assessment & Plan Assessment & Plan (1) Schizoaffective disorder without good prognostic features: Status: Acute Code(s): F25.9 - Schizoaffective disorder, unspecified (2) Diabetes mellitus: Status: Acute Code(s): E11.9 - Type 2 diabetes mellitus without complications (3) Impulse control disorder: Status: Acute Code(s): F63.9 - Impulse disorder, unspecified Plan Patient admitted on a conditional voluntary. Patient quite concrete poorly informational history of aggression patient was in alf settings the past and forensic settings has been out since May has been on a combination clozapine Depakote Haldol Decanoate reportedly had missed dose of clozapine normally was 250 mg need further history monitor safety encourage treatment for diabetes increase clozapine as tolerated restart Haldol Decanoate ck dep mlvel cloz level 11/17: Pt presents guarded, poor insight. Pt stated, I'm not diabetic. I feel fine. I don't like getting my sugar taken because it hurts. I feel good and I'm ready to go back . Pt denies SI/HI/VH/AH. Continue current tx plan. 11/18: increase HS clozapine by 25, to 175 mg QHS. stable. 11/19: increase HS clozapine by 25, to 200 mg QHS. consolidate all VPA at HS, since he has been refusing the morning dose. stable presentation. psychotic. 11/20: increase clozapine to 225 mg tonight. walking the elizalde rapping, grandiose delusions. refusing VPA. 11/21: Pt presents calm during 1:1; pt stated, I feel like my mood is good overall . Pt continues to refuse POC and insulin. He reports he will start taking the valporic acid tonight. Observed walking the unit elizalde and rapping. denies SI/HI/VH/AH. Increase Clozapine to 250mg PO bedtime. Labs ordered for tomorrow morning. ANC and CBC. 11/22: Pt guarded during 1:1; reports feeling good today. Pt stated, I'm just waiting to leave . Pt denies SI/HI/VH/AH. Refused insulin, despite education and encouragement. waiting on lab results. 11/23: Pt guarded during 1:1; reports feeling good today. Pt stated, I'm just waiting to leave. I hope they take me back tomorrow . Pt denies SI/HI/VH/AH. plan to discharge to care home tomorrow. WBC 5.3 ANC 3.5 Patient educated on: diagnosis and medication risk/benefits Informed Consent: understands Reason for continued inpatient stay Substantial Risk for: stable for discharge Time Spent With Patient Time: Total time managing care of this patient today _20___ minutes.
[2023-11-23 19:45] VITALS: BP 149/84; PULSE 105; RESP 15; TEMP 36.3; O2SAT 97
[2023-11-23] MEDS: cloZAPine 100 MG TABLET 200 MG PO (21:10)
[2023-11-23] MEDS: cloZAPine 25 MG TABLET 50 MG PO (21:10)
[2023-11-23] MEDS: Valproic Acid 250 MG CAPSULE 1000 MG PO (21:10)
[2023-11-24 07:40] VITALS: BP 139/77; PULSE 89; RESP 18; TEMP 36.2; O2SAT 97
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
== END 2023-11-24 13:20 | disposition home health service (06) | DRG 885 ==
PROVIDERS: Clinical Nurse Specialist Psychiatric/Mental Health, Adult; Psychiatry & Neurology Psychiatry; Student in an Organized Health Care Education/Training Program; Admitting Provider Psychiatry & Neurology Psychiatry; Responsible Provider Registered Nurse; Visit Provider Psychiatry & Neurology Psychiatry
DX: F25.9 Schizoaffective disorder, unspecified (principal); F17.210 Nicotine dependence, cigarettes, uncomplicated; R62.50 Unspecified lack of expected normal physiological development in childhood; I10 Essential (primary) hypertension; E11.65 Type 2 diabetes mellitus with hyperglycemia; Z71.6 Tobacco abuse counseling; Z20.822 Contact with and (suspected) exposure to COVID-19; F63.9 Impulse disorder, unspecified; Z79.84 Long term (current) use of oral hypoglycemic drugs; Z79.899 Other long term (current) drug therapy
CPT/HCPCS: 36415; 80048; 80053; 80061; 80076; 80164; 82010; 82140; 82803; 82947; 83036; 85025; 85048; 87635

== ENCOUNTER → 2023-11-15 20:55 | Outpatient (BNV) | payer MEDICARE, MEDICAID, SELFPAY | PROVIDERS: Admitting Provider Psychiatry & Neurology Psychiatry; Visit Provider Student in an Organized Health Care Education/Training Program | DX: E11.65 Type 2 diabetes mellitus with hyperglycemia (principal); Z91.148 Patient's other noncompliance with medication regimen for other reason | CPT/HCPCS: 99222; 99231 ==

== ENCOUNTER → 2023-11-15 20:55 | Outpatient (BNV) | payer MEDICARE, MEDICAID, SELFPAY | PROVIDERS: Admitting Provider Psychiatry & Neurology Psychiatry; Responsible Provider Registered Nurse; Visit Provider Psychiatry & Neurology Psychiatry | DX: F25.8 Other schizoaffective disorders (principal); E11.9 Type 2 diabetes mellitus without complications; F63.9 Impulse disorder, unspecified | CPT/HCPCS: 99231; 99232; 99238 ==

== ENCOUNTER → 2023-11-15 20:55 | Outpatient (BNV) | payer MEDICARE, MEDICAID, SELFPAY | PROVIDERS: Admitting Provider Psychiatry & Neurology Psychiatry; Visit Provider Psychiatry & Neurology Psychiatry | DX: F25.9 Schizoaffective disorder, unspecified (principal); E11.9 Type 2 diabetes mellitus without complications; F63.9 Impulse disorder, unspecified | CPT/HCPCS: 90792 ==